=== PATIENT | female | born 2000 | race African-American/Black ===

== ENCOUNTER 2023-05-14 17:06 | Emergency (ER) | payer OTHER ==
[2023-05-14 17:30] VITALS: BP 121/87; PULSE 86; RESP 18; TEMP 98.8; BMI 24.0
[2023-05-14] MEDS ORDERED: ACETAMINOPHEN 500 MG TABLET (FP) PO ONE (20:17)
[2023-05-14] MEDS ORDERED: KETOROLAC TROMETHAMINE 30 MG/1 ML VIAL IM ONE (20:19)
[2023-05-14] MEDS ORDERED: CEPHALEXIN MONOHYDRATE 500 MG CAPSULE (UD) PO ONE (20:20)
[2023-05-14] MEDS ORDERED: ACETAMINOPHEN 500 MG TABLET (FP) ONE (20:20)
[2023-05-14] MEDS ORDERED: KETOROLAC TROMETHAMINE 30 MG/1 ML VIAL ONE (20:20)
[2023-05-14] MEDS ORDERED: CEPHALEXIN MONOHYDRATE 500 MG CAPSULE (UD) ONE (20:22)
== END 2023-05-14 23:36 | disposition home or self-care (01) ==
LOC: JERFT 17:06
PROC: 3E0233Z Introduction of Anti-inflammatory into Muscle, Percutaneous Approach (ICD-10-PCS; principal; 2023-05-14)
DX: M79.672 Pain in left foot (principal); L03.116 Cellulitis of left lower limb; L02.612 Cutaneous abscess of left foot
CPT/HCPCS: 73630-TC-LT; 99284-25